=== PATIENT | male | born 1985 | race Hispanic/Latino ===

== ENCOUNTER 2018-01-20 00:23 | Emergency (ER) | payer SELFPAY ==
[2018-01-20 01:12] LABS: Absolute Lymphocytes (CBC) 1.2 K/uL (0.7-4.9); Absolute Monocytes 0.8 K/uL (0.1-1.3); Absolute Neutrophil 8.5 K/uL (1.8-8.0); Basophils % 0.3 % (0-1.3); Eosinophils % 0.9 % (0-4.4); Hematocrit 42.2 % (39.6-49.0); Lymphocytes % 11.4 % (15.3-44.8); MCH 31.2 pg (27.0-35.0); MCV 90.1 fL (80-100); MPV 9.1 fL (7.6-11.3); Monocytes % 7.1 % (3.3-12.3); RBC Red Blood Cell Count 4.68 M/uL (4.33-5.43)
[2018-01-20 01:22] LABS: ALT/SGPT 40 U/L (12-78); AST/SGOT 26 U/L (15-37); Albumin 3.8 g/dL (3.4-5.0); Alkaline Phosphatase 89 U/L (45-117); BUN Blood Urea Nitrogen 20 mg/dL (7-18); Bicarbonate 28 mmol/L (21-32); Bilirubin Direct < 0.1 mg/dL (0-0.2); Bilirubin Total 0.3 mg/dL (0.2-1.0); Glucose Level 111 mg/dL (74-106); Lipase 169 U/L (73-393); Potassium 3.6 mmol/L (3.5-5.1); Protein, Total 7.5 g/dL (6.4-8.2); Sodium Level 141 mmol/L (136-145)
[2018-01-20] MEDS ORDERED: NA CHLORIDE 0.9% 1,000 ML ONE (01:49)
--- NOTE | 2018-01-20 02:13 | EDPHYS ---
Physician Documentation [facility] Name: Bandar Aguila Age: 32 yrs Sex: Male : 1985 Arrival Date: 01/20/2018 Time: 00:23 Bed 17 Private MD: ED Physician Chet Coles HPI: 01/20 00:45 This 32 yrs old Male presents to ER via Ambulatory with complaints of jr8 Abdominal Pain. 00:45 The patient presents with abdominal pain right lower quadrant. Onset: The jr8 symptoms/episode began/occurred acutely, yesterday. The symptoms do not radiate. Associated signs and symptoms: Pertinent positives: nausea and vomiting. The symptoms are described as stabbing, steady. Modifying factors: The symptoms are alleviated by nothing, the symptoms are aggravated by nothing. Severity of pain: At its worst the pain was moderate in the emergency department the pain is unchanged. The patient has not experienced similar symptoms in the past. The patient has not recently seen a physician. Historical: - Allergies: 00:39 No Known Allergies; ak1 - Home Meds: 00:39 None [Active]; ak1 - PMHx: 00:39 None; ak1 - PSHx: 00:39 None; ak1 - Immunization history:: Adult Immunizations unknown. - Social history:: Smoking status: Patient/guardian denies using tobacco. - Ebola Screening: : No symptoms or risks identified at this time. ROS: 00:45 Eyes: Negative for injury, pain, redness, and discharge, ENT: Negative for injury, jr8 pain, and discharge, Neck: Negative for injury, pain, and swelling, Cardiovascular: Negative for chest pain, palpitations, and edema, Respiratory: Negative for shortness of breath, cough, wheezing, and pleuritic chest pain, Back: Negative for injury and pain, MS/Extremity: Negative for injury and deformity, Skin: Negative for injury, rash, and discoloration, Neuro: Negative for headache, weakness, numbness, tingling, and seizure. 00:45 Abdomen/GI: Positive for abdominal pain, nausea and vomiting, Negative for diarrhea, constipation, abdominal cramps, abdominal distension, anorexia, dysphagia, hematemesis, black/tarry stool, rectal pain, rectal bleeding, bowel incontinence, flatulence. Exam: 00:45 Eyes: Pupils equal round and reactive to light, extra-ocular motions intact. Lids and jr8 lashes normal. Conjunctiva and sclera are non-icteric and not injected. Cornea within normal limits. Periorbital areas with no swelling, redness, or edema. ENT: Nares patent. No nasal discharge, no septal abnormalities noted. Tympanic membranes are normal and external auditory canals are clear. Oropharynx with no redness, swelling, or masses, exudates, or evidence of obstruction, uvula midline. Mucous membranes moist. Neck: Trachea midline, no thyromegaly or masses palpated, and no cervical lymphadenopathy. Supple, full range of motion without nuchal rigidity, or vertebral point tenderness. No Meningismus. Cardiovascular: Regular rate and rhythm with a normal S1 and S2. No gallops, murmurs, or rubs. Normal PMI, no JVD. No pulse deficits. Respiratory: Lungs have equal breath sounds bilaterally, clear to auscultation and percussion. No rales, rhonchi or wheezes noted. No increased work of breathing, no retractions or nasal flaring. Back: No spinal tenderness. No costovertebral tenderness. Full range of motion. Skin: Warm, dry with normal turgor. Normal color with no rashes, no lesions, and no evidence of cellulitis. MS/ Extremity: Pulses equal, no cyanosis. Neurovascular intact. Full, normal range of motion. Neuro: Awake and alert, GCS 15, oriented to person, place, time, and situation. Cranial nerves II-XII grossly intact. Motor strength 5/5 in all extremities. Sensory grossly intact. Cerebellar exam normal. Normal gait. 00:45 Abdomen/GI: Inspection: abdomen appears normal, Bowel sounds: active, all quadrants, Palpation: soft, in all quadrants, mild abdominal tenderness, in the right lower quadrant, mass, is not appreciated, rebound tenderness, is not appreciated, voluntary guarding, is not appreciated, involuntary guarding, is not appreciated, no appreciated organomegaly, Indicators: McBurney's point is not tender, Mejia's sign is negative, Rovsing's sign is negative, Liver: no appreciated palpable abnormalities, tenderness, is not appreciated. Vital Signs: 00:39 BP 148 / 95; Pulse 52; Resp 18; Temp 99.4(O); Pulse Ox 99% on R/A; Weight 81.65 kg (R); ak1 Height 5 ft. 6 in. (167.64 cm) (R); Pain 7/10; 01:51 BP 131 / 89; Pulse 50; Resp 16; Pulse Ox 99% ; bp 02:00 BP 132 / 88; Pulse 51; Resp 17 S; Pulse Ox 98% on R/A; bs1 02:30 BP 120 / 79; Pulse 62; Resp 15; Temp 97.9(O); Pulse Ox 97% on R/A; Pain 0/10; bs1 00:39 Body Mass Index 29.05 (81.65 kg, 167.64 cm) ak1 MDM: 00:40 Patient medically screened. 8 01:44 Data reviewed: vital signs, nurses notes, lab test result(s), radiologic studies, CT [facility] scan, and as a result, I will discharge patient. Data interpreted: Pulse oximetry: on room air is 99 %. Interpretation: normal. Counseling: I had a detailed discussion with the patient and/or guardian regarding: the historical points, exam findings, and any diagnostic results supporting the discharge/admit diagnosis, lab results, radiology results, the need for outpatient follow up, a urologist, to return to the emergency department if symptoms worsen or persist or if there are any questions or concerns that arise at home. 01/20 00:41 Order name: Basic Metabolic Panel 01/20 00:41 Order name: CBC with Diff; Complete Time: 01:43 01/20 00:41 Order name: Creatinine for Radiology; Complete Time: 01: [facility] 01/20 00:41 Order name: Hepatic Function 01/20 00:41 Order name: Lipase 01/20 00:41 Order name: Basic Metabolic Panel; Complete Time: 01: [facility] 01/20 00:41 Order name: IV Saline Lock; Complete Time: 00:54 [facility] 01/20 00:41 Order name: Labs collected and sent; Complete Time: 00:54 [facility] 01/20 00:41 Order name: Urine Dipstick-Ancillary (obtain specimen); Complete Time: 00:53 [facility] 01/20 00:41 Order name: Liver (Hepatic) Function; Complete Time: 01:33 [facility] 01/20 00:41 Order name: Lipase; Complete Time: 01: [facility] 01/20 00:46 Order name: CT Stone Protocol [facility] 01/20 00:55 Order name: Urine Dipstick--Ancillary (enter results) rg2 Administered Medications: 01:50 Drug: NS 0.9% 1000 ml Route: IV; Rate: 1000 ml; Site: right antecubital; bp 03:05 Follow up: IV Status: Completed infusion bs1 Disposition: 01/20/18 02:13 Discharged to Home. Impression: Nephrolithiasis . - Condition is Stable. - Discharge Instructions: Kidney Stones. - Prescriptions for Cipro 500 mg Oral Tablet - take 1 tablet by ORAL route every 12 hours for 10 days; 20 tablet. Flomax 0.4 mg Oral Capsule, Sust. Release 24 hr - take 1 capsule by ORAL route once daily 1/2 hour following the same meal each day; 10 capsule. - Medication Reconciliation Form, Thank You Letter, Antibiotic Education, Prescription Opioid Use form. - Follow up: Jordyn Chris MD; When: 2 - 3 days; Reason: Recheck today's complaints, Continuance of care, Re-evaluation by your physician. - Problem is new. - Symptoms have improved. Addendum: 01/21/2018 06:30 Co-signature as Attending Physician, Chet Coles MD I agree with the assessment and t w4 plan of care. Attestation: The patient's history, exam findings, diagnostics, and a summary of any interventions or procedures was reviewed in detail with Virgil LEHMAN. Signatures: Dispatcher [employer] EDMS Virgil Meier PA PA jr8 Savanna Huerta RN RN ak1 Arjun Barth RN RN Brooke Nelson RN RN bs1 Chet Coles MD MD tw4 Corrections: (The following items were deleted from the chart) 01/20 03:05 02:13 01/20/2018 02:13 Discharged to Home. Impression: Nephrolithiasis . Condition is bs1 Stable. Forms are Medication Reconciliation Form, Thank You Letter, Antibiotic Education, Prescription Opioid Use. Follow up: Jordyn Chris; When: 2 - 3 days; Reason: Recheck today's complaints, Continuance of care, Re-evaluation by your physician. Problem is new. Symptoms have improved. jr8
--- NOTE | 2018-01-20 02:13 | ER ---
Nurse's Notes [facility] Name: Bandar Aguila Age: 32 yrs Sex: Male : 1985 Arrival Date: 01/20/2018 Time: 00:23 Bed 17 Private MD: Diagnosis: Nephrolithiasis Presentation: 01/20 00:38 Presenting complaint: Patient states: right lower quadrant pain X4 hours [employer]. pt c/o ak1 vomiting 2 hrs [employer]. Transition of care: patient was not received from another setting of care. Onset of symptoms was January 20, 2018. Risk Assessment: Do you want to hurt yourself or someone else? Patient reports no desire to harm self or others. Initial Sepsis Screen:. Care prior to arrival: None. 00:38 Method Of Arrival: Ambulatory ak1 00:38 Acuity: DAVID 3 ak1 03:04 Initial Sepsis Screen: Does the patient meet any 2 criteria? No. Patient's initial bs1 sepsis screen is negative. Does the patient have a suspected source of infection? No. Patient's initial sepsis screen is negative. Triage Assessment: 00:39 General: Appears in no apparent distress. Behavior is cooperative. Pain: Complains of ak1 pain in right lower quadrant. EENT: No signs and/or symptoms were reported regarding the EENT system. Neuro: No deficits noted. Cardiovascular: No deficits noted. Respiratory: No deficits noted. GI: Reports lower abdominal pain, nausea, vomiting. : No signs and/or symptoms were reported regarding the genitourinary system. Derm: No signs and/or symptoms reported regarding the dermatologic system. Musculoskeletal: No signs and/or symptoms reported regarding the musculoskeletal system. Historical: - Allergies: 00:39 No Known Allergies; ak1 - Home Meds: 00:39 None [Active]; ak1 - PMHx: 00:39 None; ak1 - PSHx: 00:39 None; ak1 - Immunization history:: Adult Immunizations unknown. - Social history:: Smoking status: Patient/guardian denies using tobacco. - Ebola Screening: : No symptoms or risks identified at this time. Screenin:40 Abuse screen: Denies threats or abuse. Denies injuries from another. Nutritional ak1 screening: No deficits noted. Tuberculosis screening: No symptoms or risk factors identified. Fall Risk None identified. Assessment: 00:46 General: Appears in no apparent distress. uncomfortable, Behavior is calm, cooperative, bp appropriate for age. Pain: Complains of pain in right lower quadrant. Neuro: Level of Consciousness is awake, alert, obeys commands, Oriented to person, place, time, situation, Appropriate for age. Cardiovascular: No deficits noted. Respiratory: Airway is patent Respiratory effort is even, unlabored, Respiratory pattern is regular, symmetrical. GI: Bowel sounds present X 4 quads. Abdomen is tender to palpation in right lower quadrant. : Urine is cloudy, blood tinged. EENT: No deficits noted. Derm: No deficits noted. Musculoskeletal: Circulation, motion, and sensation intact. Range of motion: intact in all extremities. 01:45 Reassessment: Report received from RACHEL Díaz. Pending CT results. bs1 01:50 Reassessment: PT RETURNED FROM CT, +STONE PER PROVIDER. IVF INFUSING. bp 03:03 Reassessment: Patient states understanding of discharge instructions. bs1 Vital Signs: 00:39 BP 148 / 95; Pulse 52; Resp 18; Temp 99.4(O); Pulse Ox 99% on R/A; Weight 81.65 kg (R); ak1 Height 5 ft. 6 in. (167.64 cm) (R); Pain 7/10; 01:51 BP 131 / 89; Pulse 50; Resp 16; Pulse Ox 99% ; bp 02:00 BP 132 / 88; Pulse 51; Resp 17 S; Pulse Ox 98% on R/A; bs1 02:30 BP 120 / 79; Pulse 62; Resp 15; Temp 97.9(O); Pulse Ox 97% on R/A; Pain 0/10; bs1 00:39 Body Mass Index 29.05 (81.65 kg, 167.64 cm) ak1 ED Course: 00:23 Patient arrived in ED. ds1 00:39 Triage completed. ak1 00:39 Arm band placed on Patient placed in an exam room, on a stretcher, Patient notified of ak1 wait time. 00:40 Virgil Meier PA is PHCP. jr8 00:40 Chet Coles MD is Attending Physician. jr8 00:40 Patient has correct armband on for positive identification. Placed in gown. Bed in low ak1 position. Call light in reach. Side rails up X 1. Pulse ox on. NIBP on. 00:45 Arjun Barth, RN is Primary Nurse. bp 00:53 Inserted saline lock: 20 gauge in right antecubital area, using aseptic technique. bp Blood collected. 01:20 Patient moved to PR via wheelchair. kw1 01:27 CT Stone Protocol In Process Unspecified. EDMS 01:29 CT completed. Patient tolerated procedure well. Patient moved back from PR. kw1 02:12 Jordyn Chris MD is Referral Physician. jr8 03:04 No provider procedures requiring assistance completed. IV discontinued, bleeding bs1 controlled, No redness/swelling at site. Pressure dressing applied. Administered Medications: 01:50 Drug: NS 0.9% 1000 ml Route: IV; Rate: 1000 ml; Site: right antecubital; bp 03:05 Follow up: IV Status: Completed infusion bs1 Outcome: 02:13 Discharge ordered by . jr8 03:04 Discharged to home ambulatory. bs1 03:04 Condition: stable 03:04 Discharge instructions given to patient, Instructed on discharge instructions, follow up and referral plans. medication usage, Demonstrated understanding of instructions, follow-up care, medications, Prescriptions given X 2. 03:05 Patient left the ED. bs1 Signatures: Dispatcher [employer] EDSD Suad Conklin ds1 Virgil Meier PA PA jr8 Krenek, Amber, RN RN ak1 Arjun Barth, RN RN bp Dori Roque kw1 Brooke Arriola, RN RN bs1
[2018-01-20 03:06] LABS: Urine Blood 3+ (NEG); Urine Glucose NEGATIVE (NEG); Urine Protein 1+ (NEG); Urine Specific Gravity >1.030 (1.005-1.030); Urine pH 5.5 (5.0-7.0)
--- NOTE | 2018-01-20 09:24 | RAD REPORT ---
EXAM DESCRIPTION: CT - Stone Protocol - 01/20/2018 4:06 am CLINICAL HISTORY: HEMATURIA<Reason For Exam>HEMATURIA Right lower quadrant pain A preliminary report was provided at the time of the study and reviewed prior to final report. COMPARISON: No comparisons<Comparisons> TECHNIQUE: Axial 5 mm thick images were obtained without oral or IV contrast. The [id number] span s the entirety of the system partially obscuring uppermost abdomen and lung bases. All CT scans are performed using dose optimization technique as appropriate and may include automated exposure control or mA/KV adjustment according to patient size. FINDINGS: Mild right-sided hydronephrosis is present secondary to a 4 x 2 millimeter calculus in the right ureteral orifice at the UVJ. No other renal or ureteral calculi seen. Right kidney is edematou s. No left-sided stone or hydronephrosis. No bladder calculus. No suspicious renal masses. Isodense m asses and pyelonephritis are not excluded on a stone protocol CT scan. Imaged portions of the liver, spleen and pancreas show no suspicious findings on non-contrast imaging . No gallbladder or biliary tree abnormality identified. No significant adrenal finding. No suspicious bowel findings. No hernia, mass or bulky lymphadenopathy noted. No free air, free fluid or inflammatory stranding. No acute bone finding. Patient has L5 spondylolysis with less than grade I spondylolisthesis. IMPRESSION: Mild right-sided hydronephrosis secondary to a 4 x 2 mm stone lodged in the right ureter al orifice. L5 spondylolysis with less than grade 1 spondylolisthesis. Isodense masses and pyelonephritis are not excluded on stone protocol technique.
== END 2018-01-20 03:05 | disposition home or self-care (01) ==
LOC: ER 00:23
DX: N20.0 Calculus of kidney (principal)
CPT/HCPCS: 36415; 74176; 76377; 80048; 80076; 81003; 83690; 85025; 96360; 99284; J7030